=== PATIENT | male | born 1960 | race Caucasian/White ===

== ENCOUNTER 2017-05-05 12:24 | Outpatient (CLI) | payer BC ==
--- NOTE | 2017-05-05 17:20 | ULT ---
TESTICULAR ULTRASOUND: Indication: Testicular pain on the left. Technique: Grayscale and color doppler with vascular duplex and spectral analysis performed. FINDINGS: Right testicle measures 3.7 x 2.3 x 3.9 cm. There is a small right hydrocele. There is normal vascula r flow to the right testicle. There is a tiny cyst seen near the mediastinum measuring 1.5 x 1.6 mm. The left testicle measures 4.0 x 2.3 x 3.5 cm. There is a 3.8 x 3.5 mm cyst near the mediastinum of t he left testicle. No solid testicular mass is evident. There is small left hydrocele. There is normal vascular flow in the left testicle. Visualized epididymi appear within normal limits. There is a sma ll epididymal cyst seen within the left epididymal head measuring 3 mm. There is a small left sided v ericocele. IMPRESSION: 1. Small bilateral hydroceles. 2. Small left sided vericocele. 3. Bilateral rete testis cysts. 4. Left epididymal head cyst. POS: [facility]
== END 2017-05-05 12:25 | disposition home or self-care (01) ==
LOC: ULT 12:24
PROVIDERS: ATTEND Urology
DX: N50.819 Testicular pain, unspecified (principal); N43.3 Hydrocele, unspecified; I86.1 Scrotal varices; N44.2 Benign cyst of testis; N50.3 Cyst of epididymis
CPT/HCPCS: 76870; 93976